=== PATIENT | female | born 1940 | race Caucasian/White ===

== ENCOUNTER → 2016-10-23 | Outpatient (CLI) | payer MEDICARE, BC ==
[~2016-10-23] MED LIST: ASPI1TAB7 PO; CALC600T10 PO; CLAR10CA3 PO; IRBE150T49 PO; LORTA5 PO; MIRA33502 PO; MULT-65 PO; STOO100C PO; VENL75 PO; VENL75TA91 PO
--- NOTE | 2016-10-23 11:04 | EKG ---
Date Performed: 10/23/2016 Time Performed: 09:56:08 PTAGE: 75 years EKG: Sinus rhythm . Normal ECG PREVIOUS TRACING : 06/13/2015 09.44 Compared to prior tracing no significant change DOCTOR: Robi White Interpretating Date/Time 10/23/2016 11:04:23
[2016-10-23 11:19] LABS: BLOOD, URINE NEG (NEG); COMMENT (UR) CULT NOT INDICATED; CULTURE IF INDICATED CULT NOT INDICATED; GLUCOSE,URINE NEG (NEG); HYALINE CAST, URINE 1 /lpf (RARE); KETONE, URINE NEG (NEG); MUCUS URINE FEW /lpf (OCC); NITRITE,URINE NEG (NEG); SQUAMOUS EPITHELIAL CELL URINE 1 /hpf (0-5); URINE COLOR YELLOW (YELLW/STRAW)
[2016-10-23 11:19] LABS: HEMATOCRIT 35.6 % (35.0-46.0); MEAN CELL VOLUME 79.4 FL (80.0-100.0); MEAN CORPUSCULAR HEMOGLOBIN 26.5 PG (27.0-34.0); MEAN CORPUSCULAR HGB CONC 33.4 % (32.0-36.0); PLATELET COUNT 379 TH/MM3 (150-450); RED BLOOD COUNT 4.48 MIL/MM3 (4.00-5.30); RED CELL DISTRIBUTION WIDTH 14.8 % (11.6-17.2); REVIEW FLAG FINAL; WHITE BLOOD COUNT 7.4 TH/MM3 (4.0-11.0)
[2016-10-23 11:27] LABS: APTT (PATIENT) 24.7 SEC (24.3-30.1); PROTHROMBIN TIME - PATIENT 10.7 SEC (9.8-11.6)
[2016-10-23 11:41] LABS: WESTERGREN SEDIMENTATION RATE 15 mm/hr (0-30)
[2016-10-23 11:58] LABS: ALKALINE PHOSPHATASE 89 U/L (45-117); ALT (GPT) 25 U/L (10-53); ANION GAP 6 MEQ/L (5-15); AST (GOT) 16 U/L (15-37); BICARBONATE 30.2 MEQ/L (21.0-32.0); BLOOD UREA NITROGEN 16 MG/DL (7-18); CHLORIDE 105 MEQ/L (98-107); GLOMERULAR FILTRATION RATE 99 ML/MIN (>89); GLUCOSE,FASTING 96 MG/DL (74-99); POTASSIUM 4.1 MEQ/L (3.5-5.1); SODIUM (NA) 141 MEQ/L (136-145); TOTAL BILIRUBIN ADULT 0.4 MG/DL (0.2-1.0)
== END ==
LOC: HCAV 09:45
DX: Z01.812 Encounter for preprocedural laboratory examination (principal); Z01.810 Encounter for preprocedural cardiovascular examination; S72.90 Unspecified fracture of unspecified femur; T84.090A Other mechanical complication of internal right hip prosthesis, initial encounter; T84.89XA Other specified complication of internal orthopedic prosthetic devices, implants and grafts, initial encounter
CPT/HCPCS: 36415; 80053; 81001; 85027; 85610; 85652; 85730; 86140; 93005